=== PATIENT | male | born 1955 | race Caucasian/White ===

== ENCOUNTER 2016-05-11 17:33 | Emergency (ER) | payer BC ==
[~2016-05-11] VITALS: Ht 172.7 cm; Wt 90.0 kg
[~2016-05-11 17:33] MED LIST: ALLEGRA60 MG OR; ALTACE2.5 MG PO; ANTI DIARRHEA; ASPIRIN81 MG PO; BACLOFEN10 MG PO; BUSPAR10 M1 PO; BUSPAR15 M1 PO; CELEXA20 M1 PO; CLOBETASOL0.051 EX; EPIPEN0.3 MG IM; FERREX 150150 MG PO; FIORICET PO; GLIPIZIDE ER5 MG PO; HUMALOG KW200 UNIT/M; K-TAB20 MEQ PO; LASIX 40 MG40 MG/TAB PO; LEVEMIR FL100 UNIT/M SC; LEXAPRO10 MG PO; LIPITOR80 MG PO; LISINOP/HCTZ1 TA1 PO; LISINOP/HCTZ1 TAB PO; LISINOPRIL5 MG PO; LOPRESSOR50 M1 PO; METFORMIN HCL1000 MG PO; METFORMIN850 MG PO; NEURONTIN100 MG PO; NEURONTIN300 MG PO; NEURONTIN600 MG PO; NEURONTIN800 MG PO; OMEPRAZOLE20 M2 PO; OXYCODONE HCL5 MG PO; PAROXETINE10 MG PO; PAROXETINE20 MG PO; PAXIL30 MG PO; PERCOCET 5/325M1 TAB PO; PLAVIX75 MG PO; POLYTRIM OU; PREVACID30 M1 PO; PREVACID30 M3 PO; PRILOSEC40 MG PO; REGLAN5 MG OR; TRAMADOL HCL50 MG PO; ULTRAM50 M1 PO; ZITHROMAX500 MG PO; ZOFRAN ODT4 MG PO
[2016-05-11 18:26] LABS: HEMOGLOBIN 15.9 g/dl (14.0-18.0); IMMATURE GRANULOCYTES 0.4 % (0.0-1.0); MEAN CELL VOLUME 82.9 fL CALC (80.0-100.0); MEAN CORPUSCULAR HGB CONC 33.8 g/L CALC (32.0-36.0); NEUT# 2.52 thou/uL (1.82-7.42); RED BLOOD COUNT 5.67 mill/uL (4.70-6.10); RED CELL DISTRI WIDTH 13.2 % (11.5-15.5)
[2016-05-11 18:32] LABS: ALBUMIN 4.9 g/dL (3.2-5.0); ALKALINE PHOSPHATASE 71 u/l (38-126); AMYLASE 38 u/l (30-110); ANION GAP 20 (6-22 (CALC)); BILIRUBIN, TOTAL 1.1 mg/dL (0.0-1.4); BUN 23 mg/dL (8-23); BUN/CREATININE RATIO 24 (12-20 (CALC)); CALCIUM 9.6 mg/dL (8.4-10.2); CARBON DIOXIDE 22 mmol/l (22-30); CHLORIDE 102 mmol/l (95-108); GFR > 60 ML/MIN (>=60 (CALC)); GFR FOR AFR.AMER. > 60 ML/MIN (>=60 (CALC)); GLUCOSE 135 mg/dL (82-115); LIPASE 55 u/l (23-300); POTASSIUM 3.3 mmol/l (3.5-5.1); SGOT/AST 32 u/l (19-48); SGPT/ALT 45 u/l (11-66); SODIUM 141 mmol/l (137-146); TOTAL PROTEIN 8.5 g/dL (6.3-8.2)
[2016-05-11] MEDS ORDERED: ZOFRAN ODT4 MG PO (20:30)
[2016-05-11] MEDS ORDERED: CIPROFLOXACN500 MG PO (20:30)
[2016-05-11 20:49] VITALS: BP 158/79
[2016-05-11 21:13] LABS: URINE BILIRUBIN - DIPSTICK NEGATIVE (NEGATIVE); URINE BLOOD DIPSTICK NEGATIVE (NEGATIVE); URINE CLARITY CLEAR; URINE COLOR YELLOW; URINE GLUCOSE - DIPSTICK NEGATIVE (NEGATIVE); URINE KETONE NEGATIVE (NEGATIVE); URINE LEUK ESTERASE NEGATIVE (NEGATIVE); URINE NITRITE - DIPSTICK NEGATIVE (Negative); URINE PH 5.5 (4.5-8.0); URINE PROTEIN - DIPSTICK NEGATIVE (NEG-TRACE); URINE UROBILINOGEN - DIPSTICK 0.2 E.U./dL (0.2)
== END 2016-05-11 20:47 | disposition home or self-care (01) | DRG 392 ==
LOC: ED 17:33
PROVIDERS: Emergency Medicine
DX: R10.33 Periumbilical pain (principal); K52.89 Other specified noninfective gastroenteritis and colitis; R11.2 Nausea with vomiting, unspecified; R19.7 Diarrhea, unspecified
CPT/HCPCS: Q9967; S0164

== ENCOUNTER 2017-03-29 19:58 | Emergency (ER) | payer SELFPAY ==
[~2017-03-29] VITALS: Ht 172.7 cm; Wt 86.3 kg
[~2017-03-29 19:58] MED LIST changes: +CIPROFLOXACN500 MG PO
[2017-03-29 20:53] LABS: HEMATOCRIT 45.4 % (39.0-50.0); HEMOGLOBIN 15.3 g/dl (14.0-18.0); IMMATURE GRANULOCYTES 0.5 % (0.0-1.0); MEAN CORPUSCULAR HGB CONC 33.7 g/L CALC (32.0-36.0); NEUT# 3.32 thou/uL (1.82-7.42); RED BLOOD COUNT 5.28 mill/uL (4.70-6.10); RED CELL DISTRI WIDTH 12.8 % (11.5-15.5)
[2017-03-29 21:05] LABS: ALKALINE PHOSPHATASE 85 u/l (38-126); ANION GAP 20 (6-22 (CALC)); BILIRUBIN, TOTAL 0.9 mg/dL (0.0-1.4); BUN 19 mg/dL (8-23); BUN/CREATININE RATIO 20 (12-20 (CALC)); CALCIUM 9.9 mg/dL (8.4-10.2); CARBON DIOXIDE 23 mmol/l (22-30); CHLORIDE 103 mmol/l (95-108); CREATININE 0.9 mg/dL (0.7-1.3); GFR > 60 ML/MIN (>=60 (CALC)); GFR FOR AFR.AMER. > 60 ML/MIN (>=60 (CALC)); GLUCOSE 111 mg/dL (82-115); POTASSIUM 4.2 mmol/l (3.5-5.1); SGOT/AST 25 u/l (19-48); SGPT/ALT 41 u/l (11-66); SODIUM 141 mmol/l (137-146); TOTAL PROTEIN 7.6 g/dL (6.3-8.2)
[2017-03-29] MEDS ORDERED: BENADRYL 50MG C50 MG PO (21:35)
[2017-03-29] MEDS ORDERED: MEDDOSEPAK PO (21:35)
[2017-03-29 21:42] VITALS: BP 119/76
== END 2017-03-29 21:42 | disposition home or self-care (01) | DRG 916 ==
LOC: ED 19:58
PROVIDERS: Emergency Medicine
DX: T78.40XA Allergy, unspecified, initial encounter (principal); R21 Rash and other nonspecific skin eruption

== ENCOUNTER 2017-12-26 08:41 | Emergency (ER) | payer SELFPAY ==
[~2017-12-26] VITALS: Ht 172.7 cm; Wt 79.5 kg
[~2017-12-26 08:41] MED LIST changes: +BENADRYL 50MG C50 MG PO; +MEDDOSEPAK PO
[2017-12-26 09:09] LABS: HEMATOCRIT 42.4 % (39.0-50.0); HEMOGLOBIN 14.2 g/dl (14.0-18.0); IMMATURE GRANULOCYTES 0.3 % (0.0-5.0); MEAN CELL VOLUME 88.5 fL CALC (80.0-100.0); MEAN CORPUSCULAR HGB 29.6 pG CALC (26.0-32.0); MEAN CORPUSCULAR HGB CONC 33.5 g/L CALC (32.0-36.0); NEUT# 3.47 thou/uL (1.82-7.42); RED BLOOD COUNT 4.79 mill/uL (4.70-6.10); RED CELL DISTRI WIDTH 12.4 % (11.5-15.5)
[2017-12-26 09:22] LABS: ALBUMIN 4.1 g/dL (3.2-5.0); ALKALINE PHOSPHATASE 58 u/l (38-126); ANION GAP 14 (6-22 (CALC)); BILIRUBIN, TOTAL 1.1 mg/dL (0.0-1.4); BUN 15 mg/dL (8-23); BUN/CREATININE RATIO 18 (12-20 (CALC)); CARBON DIOXIDE 25 mmol/l (22-30); CHLORIDE 104 mmol/l (95-108); CREATININE 0.8 mg/dL (0.7-1.3); GFR > 60 ML/MIN (>=60 (CALC)); GFR FOR AFR.AMER. > 60 ML/MIN (>=60 (CALC)); POTASSIUM 4.3 mmol/l (3.5-5.1); SGOT/AST 38 u/l (19-48); SODIUM 139 mmol/l (137-146); TOTAL PROTEIN 6.9 g/dL (6.3-8.2)
[2017-12-26 09:34] LABS: MYOGLOBIN 41 ng/mL (0 - 121)
[2017-12-26] MEDS ORDERED: NOVOLOG MIX SC (11:09)
[2017-12-26 11:52] VITALS: BP 142/80
== END 2017-12-26 12:09 | disposition home or self-care (01) | DRG 948 ==
LOC: ED 08:41
PROVIDERS: Emergency Medicine
DX: R41.82 Altered mental status, unspecified (principal); R41.3 Other amnesia

== ENCOUNTER 2018-06-11 16:07 | Observation (INO) | payer SELFPAY ==
[~2018-06-11] VITALS: Ht 172.7 cm; Wt 90.0 kg
[~2018-06-11 16:07] MED LIST changes: +NOVOLOG MIX SC
--- NOTE | 2018-06-11 16:13 | NUR ---
TO ROOM 10 VIA W/C
--- NOTE | 2018-06-11 16:54 | NUR ---
PT MEDICATED ORDERED FOR 9/10 LEFT ANTERIOR CHEST PAIN. PT TALKING AND LAUGHING WITH STAFF. MONITOR SHOWING SINUS ON THE MONITOR AT A RATE OF 72. BILATERAL LS CLEAR. PT AWARE OF PLAN OF CARE AND WAIT TIME.
[2018-06-11 17:08] LABS: HEMATOCRIT 42.2 % (39.0-50.0); HEMOGLOBIN 14.1 g/dl (14.0-18.0); IMMATURE GRANULOCYTES 0.3 % (0.0-5.0); MEAN CELL VOLUME 87.4 fL CALC (80.0-100.0); MEAN CORPUSCULAR HGB 29.2 pG CALC (26.0-32.0); MEAN CORPUSCULAR HGB CONC 33.4 g/L CALC (32.0-36.0); NEUT# 3.05 thou/uL (1.82-7.42); RED BLOOD COUNT 4.83 mill/uL (4.70-6.10); RED CELL DISTRI WIDTH 12.7 % (11.5-15.5)
[2018-06-11 17:22] LABS: ALBUMIN 4.4 g/dL (3.2-5.0); ALKALINE PHOSPHATASE 74 u/l (38-126); ANION GAP 17 (6-22 (CALC)); BILIRUBIN, TOTAL 0.9 mg/dL (0.0-1.4); BUN 14 mg/dL (8-23); BUN/CREATININE RATIO 17 (12-20 (CALC)); CARBON DIOXIDE 25 mmol/l (22-30); CHLORIDE 102 mmol/l (95-108); CREATININE 0.8 mg/dL (0.7-1.3); GFR > 60 ML/MIN (>=60 (CALC)); GFR FOR AFR.AMER. > 60 ML/MIN (>=60 (CALC)); LIPASE 66 u/l (23-300); POTASSIUM 3.8 mmol/l (3.5-5.1); SGOT/AST 30 u/l (19-48); SODIUM 140 mmol/l (137-146); TOTAL PROTEIN 7.3 g/dL (6.3-8.2)
[2018-06-11 17:28] LABS: D-DIMER 0.26 mg/L (0.19-0.60); PROTHROMBIN TIME 10.6 SECONDS (9.0-12.5)
--- NOTE | 2018-06-11 17:30 | NUR ---
PT UNABLE TO RECONCILE MEDICATION AT THIS TIME. PT REPORTS CONTINUED 8/10 CHEST PAIN. PT AWARE OF PENDING RESULTS AND WAIT TIME.
--- NOTE | 2018-06-11 18:05 | NUR ---
PT MEDICATED FOR CONTINUED 8/10 LEFT ANTERIOR CHEST PAIN, REPEAT EKG COMPLETED. PT VSS. CALL BURCH WITHIN REACH.
--- NOTE | 2018-06-11 18:22 | NUR ---
MD AT BEDSIDE TO DISCUSS RESULTS AND PLAN OF CARE.
--- NOTE | 2018-06-11 18:45 | NUR ---
REPORT TO IFEOMA DAVILA.
--- NOTE | 2018-06-11 18:59 | NUR ---
IN ROOM INTRODUCED SELF TO PT. PT. STATES HIS CP IS A 5 ON A SCALE OF 1-10. PT. MADE AWARE OF ADMISSION FOR THIS EVENING, VERBALIZED UNDERSTANDING.
--- NOTE | 2018-06-11 19:42 | NUR ---
SQ LOVENOX GIVEN PER MD ORDER.
--- NOTE | 2018-06-11 19:52 | NUR ---
Admission Note Report Given to: KHADRA DIA Transported by: Wheelchair X Stretcher Transported with: X Nurse Transporter X Patent IV O2 X Special Order Jeweler
--- NOTE | 2018-06-11 19:53 | NUR ---
TO [facility] VIA STRETCHER. NO C/O.
[2018-06-11 20:41] VITALS: BP 104/71
--- NOTE | 2018-06-11 21:00 | NUR ---
PATIENT ADMITTED FROM ER VIA STRETCHER WITH ER STAFF IN ATTENDANCE. PATIENT ABLE TO TRANSFER FROM STRETCHER TO SCALE AND THEN TO BED. PATIENT IS AWAKE ALERT AND ORIENTEDX3. PATIENT IS BEING ADMITTED FOR CHEST PAIN. WAS MEDICATED IN ER WITH MORPHINE WITH PAIN SCALE NOW 5/10. STATES THAT HE WAS BROUGHT TO THE ER BY HIS . SKIN IS WARM AND DRY. TELE MONITOR IN PLACE. SALINE LOCK INTACT. ORIENTED PATIENT TO ROOM AND SURROUNDINGS. INSTRUCTED ON USE OF NURSE CALL LIGHT SYSTEM, TV REMOTE AND PHONE. PATIENT PROVIDED SANDWICH AND DRINK. SAFETY PRECAUTIONS REINFORCED. CALL LIGHT IN REACH. WILL CONT TO MONITOR.
--- NOTE | 2018-06-11 21:00 | NUR ---
PATIENT ADMITTED FROM ER VIA STRETCHER WITH ER STAFF IN ATTENDANCE. PATIENT IS AWAKE ALERT AND ORIENTEDX3. ADMITTED FOR CHEST PAIN. WAS MEDICATED FOR PAIN IN THE ER WITH PERCOCET-PAIN IS STILL 5/10 ON PAIN SCALE. CALL LIGHT IN PLACE.
--- NOTE | 2018-06-11 22:57 | NUR ---
PATIENT APPEARS SLEEPING AT THIS TIME IN NO ACUTE DISTRESS. TELE MONITOR IN PLACE. CALL LIGHT IN REACH, WILLCOT TO MONITOR
--- NOTE | 2018-06-12 00:30 | NUR ---
PATIENT RESTING IN BED-TROP DRAWN ORDERED. NO COMPLAINTS AT THIS TIME. TELE MONITOR IN PLACE. CALL LIGHT IN REACH.WILL CONT TO MONITOR.
[2018-06-12 04:20] VITALS: BP 118/68
--- NOTE | 2018-06-12 07:00 | NUR ---
PT REPORT RECIEVED FROM IFEOMA GAVIRIA. PT ON THE PHONE. NO S/S OF DISTRESS. CALL LIGHT IN REACH. WILL CONTINUE TO MONITOR.
[2018-06-12 07:50] VITALS: BP 118/68
--- NOTE | 2018-06-12 07:50 | NUR ---
PT A/O X3. SPEECH IS CLEAR. RESP EVEN AND UNLAORED. LUNG SOUNDS CLEAR. TELE IN PLACE. BOWEL SOUNDS ACTIVE X4. STRONG RADIAL AND PEDAL PULSES. #20 RAC SL. FLUSHED AND PATENT. SITE APPEARS HEALTHY. SKIN INTACT. PT DENIES ANY PAIN OR NEEDS. POC DISCUSSED. SAFETY PRECAUTIONS IN PLACE. CALL LIGHT IN REACH. WILL CONTINUE TO MONITOR.
--- NOTE | 2018-06-12 10:36 | NUR ---
PT C/O TELE HAS NOT BEEN ON ALL NIGHT. IN TO SEE IF TELE IS IN PLACE, TELE IS IN PLACE W/ ONE LEAD SLIGHTLY OFF. PT REFUSES TO KEEP TELE ON STATING " I AM GOING HOME TODAY I AM ABOUT TO WALK OUT RIGHT NOW". TELE REMOVED PER PT REQUEST.
[2018-06-12 11:40] VITALS: BP 138/66
[2018-06-12] MEDS ORDERED: NEURONTIN800 MG PO (11:40)
[2018-06-12] MEDS ORDERED: ATORVASTATIN CA20 MG PO (11:41)
[2018-06-12] MEDS ORDERED: METOPROL TAR25 MG PO (11:42)
[2018-06-12] MEDS ORDERED: ROPINIROLE0.5 MG PO (11:43)
[2018-06-12] MEDS ORDERED: CELEXA20 MG PO (11:44)
--- NOTE | 2018-06-12 12:06 | NUR ---
PT REFUSED LAB DRAW
--- NOTE | 2018-06-12 12:13 | NUR ---
PT RESTING IN BED. NO C/O PAIN. ANXIOUS TO GO HOME. CALL LIGHT IN REACH. WILL CONTINUE TO MONITOR.
--- NOTE | 2018-06-12 12:30 | NUR ---
DC INSTRUCTIONS DISCUSSED W/ PT. PT STATES UNDERSTANDING. IV REMOVED. CATHETER INTACT. PT GETTING DRESSED.
--- NOTE | 2018-06-12 12:36 | NUR ---
Discharge instructions given. Patient verbalizes understanding of same. Discharged in stable condition via Ambulatory to Home with family. All belongings sent with pt.
== END 2018-06-12 12:34 | disposition home or self-care (01) | DRG 303 ==
LOC: ED 16:07 → ED-I 17:09 → ED 18:58 → MS2 18:59
PROVIDERS: Emergency Medicine; ADMIT Internal Medicine; ATTEND Internal Medicine
DX: I25.119 Atherosclerotic heart disease of native coronary artery with unspecified angina pectoris (principal); I10 Essential (primary) hypertension; E11.40 Type 2 diabetes mellitus with diabetic neuropathy, unspecified; G20 Parkinson's disease; F02.80 Dementia in other diseases classified elsewhere, unspecified severity, without behavioral disturbance, psychotic disturbance, mood disturbance, and anxiety; K21.9 Gastro-esophageal reflux disease without esophagitis; Z95.1 Presence of aortocoronary bypass graft; Z86.73 Personal history of transient ischemic attack (TIA), and cerebral infarction without residual deficits; Z91.19 Patient's noncompliance with other medical treatment and regimen
CPT/HCPCS: G0378; J1650; S0164

== ENCOUNTER 2019-03-25 | Emergency (ER) | payer MEDICAID ==
[~2019-03-25] MED LIST changes: +ATORVASTATIN CA20 MG PO; +CELEXA40 M1 PO; +METOPROL TAR25 MG PO; +ROPINIROLE0.5 MG PO
[2019-03-25] MEDS ORDERED: FLEXERIL5 MG PO (17:18)
== END 2019-03-25 17:40 | disposition home or self-care (01) | DRG 605 ==
DX: S40.011A Contusion of right shoulder, initial encounter (principal); S46.911A Strain of unspecified muscle, fascia and tendon at shoulder and upper arm level, right arm, initial encounter; I10 Essential (primary) hypertension; E11.40 Type 2 diabetes mellitus with diabetic neuropathy, unspecified; G20 Parkinson's disease; F02.80 Dementia in other diseases classified elsewhere, unspecified severity, without behavioral disturbance, psychotic disturbance, mood disturbance, and anxiety; W01.0XXA Fall on same level from slipping, tripping and stumbling without subsequent striking against object, initial encounter; Y92.003 Bedroom of unspecified non-institutional (private) residence as the place of occurrence of the external cause; Z95.1 Presence of aortocoronary bypass graft; Z86.73 Personal history of transient ischemic attack (TIA), and cerebral infarction without residual deficits

== ENCOUNTER 2019-04-25 | Emergency (ER) | payer MEDICAID ==
[~2019-04-25] MED LIST changes: +FLEXERIL5 MG PO
[2019-04-25 14:07] LABS: HEMATOCRIT 42.8 % (39.0-50.0); HEMOGLOBIN 14.2 g/dl (14.0-18.0); IMMATURE GRANULOCYTES 0.3 % (0.0-5.0); MEAN CELL VOLUME 87.2 fL CALC (80.0-100.0); MEAN CORPUSCULAR HGB 28.9 pG CALC (26.0-32.0); MEAN CORPUSCULAR HGB CONC 33.2 g/L CALC (32.0-36.0); NEUT# 5.01 thou/uL (1.82-7.42); RED BLOOD COUNT 4.91 mill/uL (4.70-6.10); RED CELL DISTRI WIDTH 12.6 % (11.5-15.5)
[2019-04-25 14:43] LABS: ALBUMIN 4.7 g/dL (3.2-5.0); ALKALINE PHOSPHATASE 74 u/l (38-126); BUN 16 mg/dL (8-23); BUN/CREATININE RATIO 25 (12-20 (CALC)); CARBON DIOXIDE 26 mmol/l (22-30); CHLORIDE 101 mmol/l (95-108); CREATININE 0.6 mg/dL (0.7-1.3); GFR > 60 ML/MIN (>=60 (CALC)); GFR FOR AFR.AMER. > 60 ML/MIN (>=60 (CALC)); LIPASE 49 u/l (23-300); SGOT/AST 33 u/l (19-48); SODIUM 137 mmol/l (137-146); TOTAL PROTEIN 7.9 g/dL (6.3-8.2)
[2019-04-25 14:44] LABS: ANION GAP 15 (6-22 (CALC)); BILIRUBIN, TOTAL 1.5 mg/dL (0.0-1.4); POTASSIUM 4.8 mmol/l (3.5-5.1)
[2019-04-25] MEDS ORDERED: ONDANSETRON4 MG PO (16:08)
== END 2019-04-25 17:30 | disposition home or self-care (01) | DRG 392 ==
PROVIDERS: Family Medicine
DX: K52.9 Noninfective gastroenteritis and colitis, unspecified (principal); I10 Essential (primary) hypertension; E11.40 Type 2 diabetes mellitus with diabetic neuropathy, unspecified; G20 Parkinson's disease; F02.80 Dementia in other diseases classified elsewhere, unspecified severity, without behavioral disturbance, psychotic disturbance, mood disturbance, and anxiety; Z95.1 Presence of aortocoronary bypass graft; Z86.73 Personal history of transient ischemic attack (TIA), and cerebral infarction without residual deficits
CPT/HCPCS: Q9967

== ENCOUNTER 2019-07-26 17:47 | Observation (INO) | payer MEDICAID ==
[~2019-07-26] VITALS: Ht 172.7 cm; Wt 88.9 kg
[~2019-07-26 17:47] MED LIST changes: +ONDANSETRON4 MG PO
--- NOTE | 2019-07-26 17:50 | NUR ---
PT TO ROOM VIA WHEELCHAIR.
--- NOTE | 2019-07-26 18:15 | NUR ---
PT STATES HE HAS HAD A COUGH FOR THE LAST MONTH AND SHORT OF BREATH WITH MINIMAL EXERTION X 2 WEEKS, STATES HE DID NOT GO TO THE HEALTH DEPT ([facility]) BECAUSE THEY CHARGE A HIGH SLIDING SCALE AND HE CAN'T AFFORD IT.
--- NOTE | 2019-07-26 18:20 | NUR ---
PT DENIES SMOKING OR HOME O2 USAGE STATES HE DOES HAVE A CPAP THAT HE DOESN'T WEAR BECAUSE "THEY WON'T LET ME HAVE A NEW HOSE". TECH AT BEDSIDE FOR IV START AND LAB DRAW
--- NOTE | 2019-07-26 18:37 | NUR ---
PT MEDICATED ORDERED, INSTRUCTED ON INHALER USE WITH GOOD RETURN DEMONSTRATION. IV ABT INFUSING SINCE BC X 2 DRAWN. PT REFUSED RECTAL TEMP AND MD AWARE.
[2019-07-26 18:50] LABS: HEMATOCRIT 40.6 % (39.0-50.0); HEMOGLOBIN 13.6 g/dl (14.0-18.0); IMMATURE GRANULOCYTES 0.4 % (0.0-5.0); MEAN CELL VOLUME 86.6 fL CALC (80.0-100.0); MEAN CORPUSCULAR HGB CONC 33.5 g/dL CAL (32.0-36.0); NEUT# 2.65 thou/uL (1.82-7.42); RED BLOOD COUNT 4.69 mill/uL (4.70-6.10); RED CELL DISTRI WIDTH 12.5 % (11.5-15.5)
--- NOTE | 2019-07-26 19:00 | NUR ---
IN ROOM INTRODUCED SELF TO PT. NO C/O CP OR SOB OFFERED, V/S STABLE.
[2019-07-26 19:14] LABS: ALBUMIN 4.1 g/dL (3.2-5.0); ALKALINE PHOSPHATASE 90 u/l (38-126); ANION GAP 13 (6-22 (CALC)); BILIRUBIN, TOTAL 0.9 mg/dL (0.0-1.4); BUN 14 mg/dL (8-23); BUN/CREATININE RATIO 20 (12-20 (CALC)); CARBON DIOXIDE 26 mmol/l (22-30); CHLORIDE 99 mmol/l (95-108); CREATININE 0.7 mg/dL (0.7-1.3); GFR > 60 ML/MIN (>=60 (CALC)); GFR FOR AFR.AMER. > 60 ML/MIN (>=60 (CALC)); SGOT/AST 37 u/l (19-48); SODIUM 133 mmol/l (137-146); TOTAL PROTEIN 7.3 g/dL (6.3-8.2)
--- NOTE | 2019-07-26 20:20 | NUR ---
MD IN ROOM TO DISCUSS CLINICAL FINDINGS WITH PT. AND ALSO MAKE HIM AWARE OF ADMISSION, VERBALIZED UNDERSTANDING.
--- NOTE | 2019-07-26 21:19 | NUR ---
PO ASA AND NITROOINT. GIVEN PER MD ORDER.
--- NOTE | 2019-07-26 21:28 | NUR ---
Admission Note Report Given to: AZAEL OWEN Transported by: Wheelchair X Stretcher Transported with: X Nurse Transporter X Patent IV O2 X Hide Mill Worker Location: ICU X [facility]
--- NOTE | 2019-07-26 21:39 | NUR ---
PT ARRIVED TO FLOOR VIA STRETCHER. ALERT AND ORIENTED. NO APPARENT DISTRESS NOTED. PT DENIES ANY CP OR SOB AT THIS TIME. DRY COUGH NOTED, PT REPORTS SOMETIMES PRODUCTIVE. IV SITE APPEARS HEALTHY. LIBRARY TECHNICIAN IN PLACE. SKIN INTACT. PT ORIENTED TO ROOM AND CALL LIGHT SYSTEM. PT AMBULATED WITH STEADY GAIT FROM STRETCHER TO BED. DISCUSSED POC. PT VERBALIZED UNDERSTANDING. PT INTO BED AND BEGINS TO EAT MCDONALDS. CALL LIGHT WITHIN REACH. WILL CONTINUE TO MONITOR.
[2019-07-26 21:40] VITALS: BP 153/85
--- NOTE | 2019-07-26 21:40 | NUR ---
[place] [facility] [place].
[2019-07-26 22:50] VITALS: BP 141/82
--- NOTE | 2019-07-26 22:50 | NUR ---
PT CALLED STAFF TO ROOM. PT NOTED SITTING AT SIDE OF BED, STATING HE STOOD UP AND TRIPPED ON GOWN AND FELL BACK ON BED CATCHING HIMSELF REINJURING RIGHT ROTATOR CUFF. PT STATES HE FELL 6 MONTHS AGO INJURING ROTATOR CUFF AND STATES NO INTERVENTION DONE THEN DUE TO NOT BEING ABLE TO AFFORD TREATMENT. PT HOLDING RIGHT ARM C/O SHARP PAIN 10/23. VS 141/82, 84, 100%RA, 20. NO APPARENT INJURIES NOTED. SMALLER GOWN APPLIED TO PT, NONSKID SOCKS ALREADY IN PLACE PRIOR TO INCIDENT. ASSISTED BACK INTO BED. RE-EDUCATED PT ON CALLING FOR ANY WANTS OR NEEDS. PT VERBALIZED UNDERSTANDING. PACKAGE DESIGNER PHYSICIAN NOTIFIED, NO NEW ORDERS RECEIVED. WILL CONTINUE TO MONITOR AND MEDICATE FOR PAIN NEEDED.
[2019-07-26 23:20] VITALS: BP 94/54
[2019-07-27 00:12] VITALS: BP 106/64
[2019-07-27 01:10] VITALS: BP 113/74
--- NOTE | 2019-07-27 02:13 | NUR ---
PT RESTING IN BED. NO APPARENT DISTRESS NOTED. RESIDENTIAL INSURANCE INSPECTOR IN PLACE. CALL LIGHT WITHIN REACH. WILL CONTINUE TO MONITOR.
[2019-07-27 03:10] VITALS: BP 115/75
--- NOTE | 2019-07-27 06:08 | NUR ---
LABS OBTAINED AT THIS TIME. PT TOLERATED WELL. NO CURRENT WANTS OR NEEDS. PT DENIES ANY PAIN AT THIS TIME. WILL CONTINUE TO MONITOR.
[2019-07-27 11:33] VITALS: BP 110/61
--- NOTE | 2019-07-27 11:33 | NUR ---
PT LAYING IN BED. A&O X3. PT DENIES ANY PAIN OR SOB AT THIS TIME. REPORTS TO HAVE SLIGHT DRY COUGHING EPISODES EVERY SO OFTEN. PER PT AT THE HEALTH DEPT HAS DX HIM WITH EARLY SIGNS OF DEMENTIA BUT NO CURRENT MEDICATION STARTED FOR IT. STATES HE HAS NOT BEEN ABLE TO FOLLOW UP WITH HIS MACHINE SIGN WRITER IN 2 YEARS. SLIGHT EXCERTIONAL SOB NOTED.NO OTHER NEEDS AT THIS TIME. ASSESSMENT COMPLETED. DISCUSSED POC. CALL LIGHT IN REACH. CONTINUE TO MONITOR
[2019-07-27 11:56] VITALS: BP 116/73
--- NOTE | 2019-07-27 14:30 | NUR ---
NO CURRENT NEEDS FROM THE PT AT THIS TIME. CALL LIGHT IN REACH. CONTINUE TO MONITOR.
[2019-07-27 14:45] VITALS: BP 98/61
--- NOTE | 2019-07-27 16:44 | NUR ---
D/C INSTRUCTIONS GIVEN TO PT. IV INTACT UPON REMOVAL.
--- NOTE | 2019-07-27 17:00 | NUR ---
Discharge instructions given. Patient verbalizes understanding of same. Discharged in stable condition via Wheelchair to Home with staff. All belongings sent with pt.
== END 2019-07-27 17:00 | disposition home or self-care (01) ==
LOC: ED 17:47 → ED-I 20:10 → ED 20:26 → ED-I 20:27 → MS2 20:41
PROVIDERS: Family Medicine; ADMIT Internal Medicine; ATTEND Internal Medicine
DX: I20.9 Angina pectoris, unspecified (principal); I10 Essential (primary) hypertension; E11.40 Type 2 diabetes mellitus with diabetic neuropathy, unspecified; G20 Parkinson's disease; F02.80 Dementia in other diseases classified elsewhere, unspecified severity, without behavioral disturbance, psychotic disturbance, mood disturbance, and anxiety; Z86.73 Personal history of transient ischemic attack (TIA), and cerebral infarction without residual deficits; Z95.1 Presence of aortocoronary bypass graft; Z79.4 Long term (current) use of insulin; Z88.0 Allergy status to penicillin; Z20.828 Contact with and (suspected) exposure to other viral communicable diseases
CPT/HCPCS: G0378; J1650; S0073

== ENCOUNTER 2020-03-31 17:59 | Emergency (ER) | payer MEDICARE ==
[~2020-03-31] VITALS: Ht 172.7 cm; Wt 90.0 kg
[2020-03-31 19:52] VITALS: BP 149/90
== END 2020-03-31 19:45 | disposition home or self-care (01) ==
LOC: ED 17:59
DX: B34.9 Viral infection, unspecified (principal); I10 Essential (primary) hypertension; E11.9 Type 2 diabetes mellitus without complications; G20 Parkinson's disease; F02.80 Dementia in other diseases classified elsewhere, unspecified severity, without behavioral disturbance, psychotic disturbance, mood disturbance, and anxiety; K21.9 Gastro-esophageal reflux disease without esophagitis; E11.40 Type 2 diabetes mellitus with diabetic neuropathy, unspecified; Z86.73 Personal history of transient ischemic attack (TIA), and cerebral infarction without residual deficits; Z95.1 Presence of aortocoronary bypass graft; Z20.822 Contact with and (suspected) exposure to COVID-19

== ENCOUNTER 2020-07-29 21:36 | Emergency (ER) | payer MEDICARE ==
[~2020-07-29] VITALS: Ht 172.7 cm; Wt 90.0 kg
[2020-07-29] MEDS ORDERED: PREDNISONE50 MG PO (21:58)
[2020-07-29] MEDS ORDERED: VISTARIL25 MG PO (21:58)
[2020-07-29 22:13] VITALS: BP 161/93
[2020-08-10] MEDS ORDERED: ASPIRIN81 MG PO (11:26)
[2020-08-10] MEDS ORDERED: CLOBETASOL0.051 EX (11:27)
[2020-08-10] MEDS ORDERED: ADMELOG SO100 UNIT/M SC (11:27)
[2020-08-10] MEDS ORDERED: LEVEMIR FL100 UNIT/M SC (11:27)
[2020-08-10] MEDS ORDERED: ZYRTEC10 MG PO (11:28)
[2020-08-10] MEDS ORDERED: PREVACID15 M3 PO (11:28)
[2020-08-10] MEDS ORDERED: RISPERIDONE2 MG PO (11:28)
== END 2020-07-29 22:32 | disposition home or self-care (01) ==
LOC: ED 21:36
DX: T78.40XA Allergy, unspecified, initial encounter (principal); I10 Essential (primary) hypertension; K21.9 Gastro-esophageal reflux disease without esophagitis; E11.40 Type 2 diabetes mellitus with diabetic neuropathy, unspecified; F03.90 Unspecified dementia, unspecified severity, without behavioral disturbance, psychotic disturbance, mood disturbance, and anxiety; X58.XXXA Exposure to other specified factors, initial encounter; Z95.1 Presence of aortocoronary bypass graft; Z86.73 Personal history of transient ischemic attack (TIA), and cerebral infarction without residual deficits

== ENCOUNTER 2020-09-22 07:04 | Day surgery (SDC) | payer MEDICARE ==
[~2020-09-22 07:04] MED LIST changes: +ADMELOG SO100 UNIT/M SC; +PREDNISONE50 MG PO; +PREVACID15 M3 PO; +RISPERIDONE2 MG PO; +VISTARIL25 MG PO; +ZYRTEC10 MG PO
[2020-09-22] MEDS ORDERED: QUETIAPINE FUMA25 MG PO (07:41)
[2020-09-22 09:48] VITALS: BP 128/82
== END 2020-09-22 10:00 | disposition home or self-care (01) ==
LOC: ENDO 07:04 → ORM 09:15 → ENDO 10:00
PROVIDERS: ATTEND Surgery
PROC: 0DBG8ZX Excision of Left Large Intestine, Via Natural or Artificial Opening Endoscopic, Diagnostic (ICD-10-PCS; principal; 2020-09-22)
PROC: 0DJ08ZZ Inspection of Upper Intestinal Tract, Via Natural or Artificial Opening Endoscopic (ICD-10-PCS; 2020-09-22)
DX: D12.4 Benign neoplasm of descending colon (principal); K64.8 Other hemorrhoids; K44.9 Diaphragmatic hernia without obstruction or gangrene; I25.10 Atherosclerotic heart disease of native coronary artery without angina pectoris; E11.9 Type 2 diabetes mellitus without complications; Z95.1 Presence of aortocoronary bypass graft

== ENCOUNTER 2020-12-25 13:42 | Emergency (ER) | payer MEDICARE ==
[~2020-12-25] VITALS: Ht 172.7 cm; Wt 82.0 kg
[~2020-12-25 13:42] MED LIST changes: +QUETIAPINE FUMA25 MG PO
[2020-12-25 14:35] LABS: HEMATOCRIT 46.8 % (39.0-50.0); IMMATURE GRANULOCYTES 0.1 % (0.0-5.0); MEAN CELL VOLUME 85.6 fL CALC (80.0-100.0); MEAN CORPUSCULAR HGB 29.3 pG CALC (26.0-32.0); MEAN CORPUSCULAR HGB CONC 34.2 g/dL CAL (32.0-36.0); NEUT# 5.95 thou/uL (1.82-7.42); RED BLOOD COUNT 5.47 mill/uL (4.70-6.10); RED CELL DISTRI WIDTH 11.8 % (11.5-15.5)
[2020-12-25 15:01] LABS: PROTHROMBIN TIME 10.3 SECONDS (9.0-12.5)
[2020-12-25 16:26] LABS: ALBUMIN 4.5 g/dL (3.2-5.0); ALKALINE PHOSPHATASE 62 u/l (38-126); AMYLASE 46 u/l (30-110); ANION GAP 16 (6-22 (CALC)); BILIRUBIN, TOTAL 1.7 mg/dL (0.0-1.4); BUN 14 mg/dL (8-23); BUN/CREATININE RATIO 19 (12-20 (CALC)); CARBON DIOXIDE 28 mmol/l (22-30); CHLORIDE 99 mmol/l (95-108); CREATININE 0.7 mg/dL (0.7-1.3); GFR > 60 ML/MIN (>=60 (CALC)); GFR FOR AFR.AMER. > 60 ML/MIN (>=60 (CALC)); LIPASE 28 u/l (23-300); SGOT/AST 31 u/l (19-48); SODIUM 139 mmol/l (137-146); TOTAL PROTEIN 7.7 g/dL (6.3-8.2)
[2020-12-25] MEDS ORDERED: ONDANSETRON4 MG PO (17:20)
[2020-12-25 17:30] VITALS: BP 138/79
== END 2020-12-25 17:30 | disposition home or self-care (01) ==
LOC: ED 13:42
PROVIDERS: Emergency Medicine
DX: R11.10 Vomiting, unspecified (principal); R10.84 Generalized abdominal pain; E11.9 Type 2 diabetes mellitus without complications; G20 Parkinson's disease; F02.80 Dementia in other diseases classified elsewhere, unspecified severity, without behavioral disturbance, psychotic disturbance, mood disturbance, and anxiety; Z95.1 Presence of aortocoronary bypass graft; Z79.4 Long term (current) use of insulin; Z86.010 Personal history of colon polyps
CPT/HCPCS: Q9967

== ENCOUNTER 2021-05-02 11:06 | Emergency (ER) | payer MEDICARE ==
[~2021-05-02] VITALS: Ht 172.7 cm; Wt 72.0 kg
[2021-05-02] VITALS (10 sets, daily range): BP systolic 122–154; BP diastolic 78–96
[2021-05-02 13:16] LABS: IMMATURE GRANULOCYTES 0.1 % (0.0-5.0); MEAN CELL VOLUME 87.5 fL CALC (80.0-100.0); MEAN CORPUSCULAR HGB 29.5 pG CALC (26.0-32.0); MEAN CORPUSCULAR HGB CONC 33.7 g/dL CAL (32.0-36.0); NEUT# 6.18 thou/uL (1.82-7.42); RED BLOOD COUNT 5.46 mill/uL (4.70-6.10); RED CELL DISTRI WIDTH 12.4 % (11.5-15.5)
[2021-05-02 13:26] LABS: HEMATOCRIT 47.8 % (39.0-50.0); HEMOGLOBIN 16.1 g/dl (14.0-18.0)
[2021-05-02 13:34] LABS: ACT PARTIAL THROMBO TIME 28.6 SECONDS (20.0-32.5); ALKALINE PHOSPHATASE 75 u/l (38-126); ANION GAP 19 (6-22 (CALC)); BUN 10 mg/dL (8-23); BUN/CREATININE RATIO 13 (12-20 (CALC)); CARBON DIOXIDE 23 mmol/l (22-30); CHLORIDE 96 mmol/l (95-108); CREATININE 0.8 mg/dL (0.7-1.3); GFR > 60 ML/MIN (>=60 (CALC)); GFR FOR AFR.AMER. > 60 ML/MIN (>=60 (CALC)); LIPASE 39 u/l (23-300); MAGNESIUM 1.8 mg/dL (1.6-2.3); POTASSIUM 3.8 mmol/l (3.5-5.1); PROTHROMBIN TIME 10.9 SECONDS (9.0-12.5); SGOT/AST 26 u/l (19-48); SODIUM 134 mmol/l (137-146)
[2021-05-02 13:41] LABS: ALBUMIN 4.6 g/dL (3.2-5.0); BILIRUBIN, TOTAL 2.6 mg/dL (0.0-1.4); TOTAL PROTEIN 8.6 g/dL (6.3-8.2)
[2021-05-02] MEDS ORDERED: ZOFRAN4 MG/TAB PO (16:02)
[2021-05-02] MEDS ORDERED: TAM75CAP PO (16:02)
[2021-05-02 16:58] LABS: URINE BILIRUBIN - DIPSTICK NEGATIVE (NEGATIVE); URINE BLOOD DIPSTICK NEGATIVE (NEGATIVE); URINE COLOR YELLOW; URINE GLUCOSE - DIPSTICK >=1000 mg/dL (NEGATIVE); URINE KETONE NEGATIVE (NEGATIVE); URINE LEUK ESTERASE NEGATIVE (NEGATIVE); URINE NITRITE - DIPSTICK NEGATIVE (Negative); URINE PROTEIN - DIPSTICK NEGATIVE (NEG-TRACE); URINE UROBILINOGEN - DIPSTICK 0.2 E.U./dL (0.2)
== END 2021-05-02 17:50 | disposition home or self-care (01) ==
LOC: ED 11:06
DX: J10.1 Influenza due to other identified influenza virus with other respiratory manifestations (principal); E86.0 Dehydration; E87.2 Acidosis; I10 Essential (primary) hypertension; E11.9 Type 2 diabetes mellitus without complications; G20 Parkinson's disease; E78.00 Pure hypercholesterolemia, unspecified; Z95.1 Presence of aortocoronary bypass graft; Z79.4 Long term (current) use of insulin; Z20.822 Contact with and (suspected) exposure to COVID-19
CPT/HCPCS: Q9967